=== PATIENT | female | born 1985 ===

== ENCOUNTER 2016-12-14 15:13 | Emergency (ER) | payer OTHER ==
[2016-12-14 15:27] LABS: BASOPHILS % (AUTO) 0 % (0-3); EOSINOPHILS % (AUTO) 0 % (0-9); HEMATOCRIT 42 % (35-47); MEAN CORPUSCULAR HGB CONC 33.8 gm/dl (32.0-36.0); MONOCYTES % (AUTO) 1.5 % (0-12); NEUTROPHILS % (AUTO) 87.8 % (37-80)
[2016-12-14 15:28] LABS: MEAN CORPUSCULAR VOLUME 80 fL (81-99)
[2016-12-14] MEDS ORDERED: LORAZEPAM 2 MG/ML SOL IV ONE (15:28)
[2016-12-14] MEDS ORDERED: LORAZEPAM 2 MG/ML SOL ONE (15:29)
[2016-12-14] MEDS ORDERED: SODIUM CHLORIDE 0.9% 1000 ML SOL IV SCH (15:30)
[2016-12-14 15:32] VITALS: TEMP 98.8
[2016-12-14 15:39] LABS: CALCIUM 8.4 mg/dl (8.5-10.1); POTASSIUM 3.8 mMol/L (3.5-5.1)
[2016-12-14] MEDS ORDERED: ONDANSETRON HCL 4 MG/2 ML SOL IV ONE (15:57)
[2016-12-14] MEDS ORDERED: ONDANSETRON HCL 4 MG/2 ML SOL ONE (15:58)
[2016-12-14 16:38] LABS: APPEARANCE,URINE Clear; BILIRUBIN,URINE 1+ (NEGATIVE); COLOR,URINE Dark yellow; GLUCOSE, URINE (UA) NEGATIVE (NEGATIVE); KETONES,URINE TRACE (NEGATIVE); LEUKOCYTE ESTERASE ,URINE NEGATIVE (NEGATIVE); NITRATE,URINE NEGATIVE (NEGATIVE); OCCULT BLOOD,URINE NEGATIVE (NEG-TRACE); UROBILINOGEN,URINE 0.2 (0.2-1.0 EU)
[2016-12-14 16:47] LABS: AMPHETAMINES NEGATIVE (NEGATIVE); ICTOTEST,URINE NEGATIVE (NEGATIVE); METHADONE NEGATIVE (NEGATIVE); OPIATES(OP13) NEGATIVE (NEGATIVE); OXYCODONE(OXY) NEGATIVE (NEGATIVE); PROPOXYPHENE(PPX) NEGATIVE (NEGATIVE); RBC,URINE 0-2 (0-3AV/HPF); TRICYCLIC ANTIDEPRESSANTS NEGATIVE (NEGATIVE)
[2016-12-14 18:08] VITALS: BP 117/60; PULSE 61; RESP 16; O2SAT 97
== END 2016-12-14 17:52 | disposition left against medical advice (07) ==
LOC: ED 15:13
DX: R56.9 Unspecified convulsions (principal)
CPT/HCPCS: 99285 ×3; 71010; 72125; 80053; 80305; 81001; 84703; 85025; 93005; G0390; J2060; J2405; 70450; 96365; 96374; 96375

== ENCOUNTER 2019-01-13 19:07 | Emergency (ER) | payer BC, OTHER ==
[2019-01-13 19:44] VITALS: RESP 14; TEMP 96.8
[2019-01-13] MEDS ORDERED: SODIUM CHLORIDE 0.9% 1000ML 1,000 ML IV ONE (19:44)
[2019-01-13] MEDS ORDERED: SODIUM CHLORIDE 0.9% FLUSH 10 ML SOL IV PRN (19:47)
[2019-01-13 19:57] LABS: BASOPHILS % (AUTO) 1 % (0-3); EOSINOPHILS % (AUTO) 3 % (0-9); HEMATOCRIT 45 % (35-47); HEMOGLOBIN 14.2 gm/dl (12.0-15.5); LYMPHOCYTES % (AUTO) 28.8 % (10-50); MEAN CORPUSCULAR HEMOGLOBIN 25.3 pg (27.0-32.0); MEAN CORPUSCULAR HGB CONC 31.3 gm/dl (32.0-36.0); MONOCYTES % (AUTO) 7.8 % (0-12); NEUTROPHILS % (AUTO) 59.8 % (37-80)
[2019-01-13 19:59] LABS: MEAN CORPUSCULAR VOLUME 81 fL (81-99)
[2019-01-13] MEDS ORDERED: KETOROLAC TROMETHAMINE 30 MG/ML SOL ONE (20:10)
[2019-01-13] MEDS ORDERED: DIPHENHYDRAMINE 50 MG/ML SOL IV ONE (20:10)
[2019-01-13] MEDS ORDERED: KETOROLAC TROMETHAMINE 30 MG/ML SOL IV ONE (20:10)
[2019-01-13] MEDS ORDERED: SUMATRIPTAN SUCCINATE 6 MG/0.5 ML SOL SC ONE ×2 (20:25)
[2019-01-13] MEDS ORDERED: DIPHENHYDRAMINE 50 MG/ML SOL ONE (21:13)
[2019-01-13 21:57] VITALS: BP 156/99; PULSE 50; O2SAT 97
== END 2019-01-13 21:30 | disposition home or self-care (01) ==
LOC: ED 19:07
DX: G43.011 Migraine without aura, intractable, with status migrainosus (principal)
CPT/HCPCS: 70450; 85025; 96365; 96372; 96374; 96375; 99283; 99285; J1200; J1885; J3030

== ENCOUNTER 2019-04-03 17:31 | Observation (INO) | payer OTHER ==
[2019-04-03 17:35] LABS: AMYLASE 16 IU/L (25-115)
[2019-04-03] MEDS ORDERED: SODIUM CHLORIDE 0.9% 1000ML 1,000 ML IV ONE (18:14)
[2019-04-03] MEDS: PANTOPRAZOLE SODIUM 40 MG/10 ML PDS IV SCH (18:47)
[2019-04-03] MEDS: SODIUM CHLORIDE 0.9% FLUSH 10 ML SOL IV SCH (18:53)
[2019-04-03] MEDS: KETOROLAC TROMETHAMINE 30 MG/ML SOL IV PRN (20:14)
[2019-04-03] MEDS ORDERED: SERTRALINE HYDROCHLORIDE 50 MG TAB PO SCH (21:00)
[2019-04-03] MEDS: DEXTROSE/SALINE 0.45/KCL 20MEQ 1,000 ML/1,000 ML SOL IV SCH (21:10)
[2019-04-04] MEDS: KETOROLAC TROMETHAMINE 30 MG/ML SOL IV PRN (02:06)
[2019-04-04] MEDS: SODIUM CHLORIDE 0.9% FLUSH 10 ML SOL IV SCH ×3 (02:08→13:27)
[2019-04-04] MEDS ORDERED: ACETAMINOPHEN 500 MG 500 MG TAB PO PRN (02:49)
[2019-04-04] MEDS ORDERED: LIDOCAINE HCL 2% (VISCOUS) 15 ML SOL MT ONE (03:21)
[2019-04-04] MEDS ORDERED: ALUMINUM/MAGNESIUM 30 ML SUS PO ONE (03:22)
[2019-04-04] MEDS: DEXTROSE/SALINE 0.45/KCL 20MEQ 1,000 ML/1,000 ML SOL IV SCH ×2 (03:53→10:41)
[2019-04-04 07:05] LABS: CALCIUM 7.9 mg/dl (8.5-10.1); CARBON DIOXIDE 25.3 mEq/L (21-32); CREATININE 0.74 mg/dl (0.60-1.00)
[2019-04-04 09:19] LABS: HEMOGLOBIN A1C 8.2 % (4.8-6.0)
[2019-04-04] MEDS ORDERED: ALUMINUM/MAGNESIUM 30 ML SUS PO PRN (10:22)
[2019-04-04] MEDS ORDERED: LIDOCAINE HCL 2% (VISCOUS) 15 ML SOL MT PRN (10:23)
[2019-04-04 10:32] VITALS: PULSE 60; RESP 20
[2019-04-04] MEDS: PANTOPRAZOLE SODIUM 40 MG/10 ML PDS IV SCH (13:27)
[2019-04-04] MEDS ORDERED: GLIMEPIRIDE 2 MG TAB PO SCH (13:30)
[2019-04-04 14:13] VITALS: BP 138/90; TEMP 98.4; O2SAT 98
== END 2019-04-04 14:25 | disposition home or self-care (01) ==
LOC: ACUTE CARE 17:31
PROVIDERS: ADMIT Family Medicine; ATTEND Family Medicine
DX: R10.9 Unspecified abdominal pain (principal); E86.0 Dehydration; R73.9 Hyperglycemia, unspecified; E11.9 Type 2 diabetes mellitus without complications
CPT/HCPCS: 36415; 74177; 80048; 82962; 83036; 84484; 85018; 93005; J1885; Q9967; A9270-GY

== ENCOUNTER 2019-05-25 17:17 | Emergency (ER) | payer OTHER ==
[2019-05-25 17:44] VITALS: BP 132/88; PULSE 64; RESP 18; TEMP 97.7; O2SAT 96
[2019-05-25] MEDS ORDERED: IBUPROFEN 400 MG TAB PO ONE (17:50)
[2019-05-25] MEDS ORDERED: IBUPROFEN 400 MG TAB ONE (17:53)
== END 2019-05-25 19:15 | disposition home or self-care (01) ==
LOC: ED 17:17
DX: S93.401A Sprain of unspecified ligament of right ankle, initial encounter (principal); W18.30XA Fall on same level, unspecified, initial encounter; E11.9 Type 2 diabetes mellitus without complications
CPT/HCPCS: 73610; 99282; 99283; L4350; A9270-GY; E0114